=== PATIENT | male | born 1995 | race Caucasian/White ===

== ENCOUNTER → 2017-04-24 15:49 | Outpatient (CLI) | payer BC, SELFPAY ==
[2017-04-24 18:11] LABS: CRP < 2.90 mg/L (0.0-3.0)
[2017-04-27 09:55] LABS: Endomysial Antibody IgA Negative (Negative)
[2017-04-27 16:09] LABS: Immunoglobulin A 236 mg/dL (90-386); t-Transglutaminase IgA <2 U/mL (0-3)
== END ==
PROVIDERS: Visit Provider Internal Medicine Gastroenterology
DX: R10.9 Unspecified abdominal pain (principal)
CPT/HCPCS: 36415; 82784; 83516; 86140; 86255

== ENCOUNTER → 2017-05-22 07:57 | Outpatient (CLI) | payer BC, SELFPAY ==
--- NOTE | 2017-05-22 08:03 | RAD_ITS ---
PROCEDURE: SMALL BOWEL SERIES DATE OF EXAMINATION: May 22, 2017. INDICATION: Male, 22 years old. One-year history of abdominal pain. PHYSICIAN: Tobi Harris M.D. FLUOROSCOPY TIME (if supplied): (0:30) minutes/seconds TECHNIQUE: Radiographic and fluoroscopic images were taken of the small intestine following the ingestion of barium. COMPARISON: None. FINDINGS: A preliminary supine KUB was obtained. There is an unremarkable bowel gas pattern. Fecal material is present throughout the colon. The osseous structures are normal. The patient orally ingested approximately 12 ounces of thin barium Normal visualized fundus, body, and antrum of the stomach. Normal duodenal bulb, C-loop, and proximal jejunum. Normal visualized mucosal folds of the jejunum and ileum. There are no demonstrated dilatations, strictures, or masses of the small intestine. There is no mass displacement of the loops of small intestine. There is a normal motor pattern with barium reaching the colon within approximately 30 minutes. Spot films under fluoroscopic observation demonstrated a normal terminal ileum and ileocecal valve. RAD/Small Bowel Series Only IMPRESSION: Normal small bowel series. Electronically Signed: Tobi Harris MD at 10:27 EDT Tel [phone], Service support ,
== END ==
PROVIDERS: Visit Provider Internal Medicine Gastroenterology
DX: R10.9 Unspecified abdominal pain (principal)
CPT/HCPCS: 74250